=== PATIENT | female | born 1990 | race Caucasian/White ===

== ENCOUNTER 2025-10-12 10:20 | Emergency (ER) | payer BC, SELFPAY ==
[2025-10-12 10:32] VITALS: BP 123/82
--- NOTE | 2025-10-12 12:02 | ED.GENMED ---
History of Present Illness
General
Chief Complaint: Musculo-Skeletal Complaint
Source: patient
Time Seen by Provider: 10/12/25 11:32
History of Present Illness
History of Present Illness:
35-year-old female with no significant past medical history presents to the emergency department for evaluation after accidentally tripping over a baby gate and noting that her right patella seem to shift laterally but was able to go back in place
prior to arrival to the ER. Patient denies any previous history of injury or surgery. She notes that she was able to ambulate following the event but that the knee felt unstable and was causing her pain. No other injuries to the extremity. No
other concerns presently.
Past History
Past History
ED Past Medical History: None
ED Past Surgical History:
Social History
Tobacco: Non-smoker
Alcohol: None
Drug: None
Personal:
Living: with family
Review of Systems
Review of Systems
All Other Systems: ROS reviewed and negative except as documented in HPI and ROS
Phy Exam
Physical Exam
Physical Exam:
GENERAL: Alert , in no apparent distress
EYE: conjunctiva clear
Head: Normocephalic atraumatic
NECK: Supple,
ENT: mmm.
LUNGS: no acute respiratory distress
NEUROLOGICAL: Alert and oriented
SKIN: Warm and dry, skin intact.
MUSCULOSKELETAL: Right knee: Mild soft tissue swelling about the right knee but no joint effusion. Patient does allow for limited range of motion of the right knee secondary to pain. No focal areas of tenderness. Extremities otherwise warm and
well-perfused. No overlying outward trauma noted
PSYCH: Normal and appropriate interaction.
Scores
Heart Failure Risk
Heart Failure Risk Score: Not Applicable
Heart Score for Chest Pain Patients
STEMI patient?: Not applicable
Withdrawal Assessment of Alcohol
Withdrawal Assessment Completed?: Not applicable
Course
Orders/Labs/Results
Orders:
Orders
10/12/25 10:35
Knee, Right 4 or More Views [CR Knee- Right 4 Or More View*] Urgent
Comment:
Reason For Exam: pain, injury
10/12/25 12:02
Knee Immobilizer Right-Treatme ONCE
Vital Signs
Initial and Last Documented VS:
Initial Vital Signs
Temp Pulse Resp BP Pulse Ox
98.4 F 72 16 123/82 98
10/12/25 10:32 10/12/25 10:32 10/12/25 10:32 10/12/25 10:32 10/12/25 10:32
Last Documented Vital Signs
Temp Pulse Resp BP Pulse Ox
98.4 F 72 16 123/82 98
10/12/25 10:32 10/12/25 10:32 10/12/25 10:32 10/12/25 10:32 10/12/25 12:02
MDM/Problems Addressed
Differential Diagnosis Includes:
Subluxation
Dislocation
Fracture
Ligamentous injury
Meniscal injury
MDM/Problems Addressed:
35-year-old female presenting to the emergency department to be evaluated for right knee injury sustained at home. Based off the description patient likely subluxed her right patella. Extremity is otherwise warm and well-perfused. X-ray of the
knee taken does not show any fracture or dislocation. Will place in immobilizer. Encouraged outpatient orthopedics follow-up. Aware of return precautions
*Radiology
Radiology exam reviewed: preliminary read by ED provider ( no acute fracture)
*Pulse Oximetry
SaO2: 98
Oxygen Mode of Delivery: Room air
Patient hypoxic: no
*Critical Care Note
Total Time (30-74mins, 75-104mins- exclusive of procedures): Not Applicable
ED Attending Note
-
Portions of this chart may have been created with voice recognition software.� Occasional wrong word or��sound alike� substitutions may have occurred due to the inherent limitations of voice recognition software.
Discharge Plan
Departure
Patient Disposition: Home (Routine Discharge)
Date of Disposition: 10/12/25
Time of Disposition: 12:02
Patient with high blood pressure during this ER visit?: No
Discharge Problem:
Subluxation of right patella
Instructions: Knee pain - ED (DC)
Prescriptions:
No Action
[id number] 1 mg Tablet
1 tab PO DAILY
oxycodone-acetaminophen 5-325 mg Tablet
1 tab PO Q4HPRN PRN (Reason: moderate pain) Qty: 12 0RF
ibuprofen 600 mg Tablet
600 mg PO Q6HPRN PRN (Reason: cramps) Qty: 30 0RF
Referrals:
Tresa Rodriguez MD [Family Provider, Family Practice]
Lizzy Guerrero I., DO [Active, Orthopedics]
Interventions
Interventions:
*Risk Screen - Suicide (C-SSRS) Last Done: 10/12/25 10:32
ED-Musculoskeletal Assessment Last Done: 10/12/25 12:29
Discharge Date and Time
Print Language: UKRAINIAN
== END 2025-10-12 12:31 | disposition home or self-care (01) ==
LOC: EMR 10:20
PROVIDERS: EMERGENCY PHYSICIAN Student in an Organized Health Care Education/Training Program; FAMILY PHYSICIAN Family Medicine
DX: S83.011A Lateral subluxation of right patella, initial encounter (principal); W18.09XA Striking against other object with subsequent fall, initial encounter; Y92.009 Unspecified place in unspecified non-institutional (private) residence as the place of occurrence of the external cause
CPT/HCPCS: 99283; 29505; 73564